=== PATIENT | male | born 1955 | race Caucasian/White ===

== ENCOUNTER 2016-09-07 16:08 | Emergency (ER) | payer OTHER ==
[2016-09-07 16:18] VITALS: TEMP 98; BMI 27.6
[2016-09-07] MEDS ORDERED: DIPHTHERIA AND TETANUS (ADULT) 0.5 ML SYR IM ONE (16:23)
[2016-09-07] MEDS ORDERED: LIDOCAINE 2% 5 ML (PRESERVATIVE FREE) VIAL INF ONE (16:23)
--- NOTE | 2016-09-07 16:53 | EDPRACDOC ---
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 NEEDS TETANUS. CUT ON WIRE. - Tetanus Status Last Tetanus: No - Pain Pain Severity: None Bleeding: Reports: Controlled Associated Signs & Symptoms: Reports: None ED Past Medical History - History Reviewed Yes Nurses notes reviewed and agree except as marked - Patient Medical History Cardiac History: Reports: Atrial Fibrillation Psychological History: Denies: Depression - Social Medical History Smoking Status: Heavy tobacco smoker (5 or more cigarettes/day or daily pipe/ cigar) EDM Review of Systems - Review of Systems ROS Negative Except as Marked: Yes All systems reviewed and were negative except as marked Constitutional: No Symptoms Reported Neurological: No Symptoms Reported Musculoskeletal: Hand Integumentary: Wound - Physical Exam Constitutional: Alert (Awake), No apparent distress Oriented to: Time, Person, Place Last recorded Vital Signs: Last Vital Signs Temp 98 F 09/07/16 16:16 Pulse 94 09/07/16 16:16 Resp 18 09/07/16 16:16 BP 138/74 09/07/16 16:16 Pulse Ox 97 09/07/16 16:16 Oxygen Pulse Oxygen Saturation 97 O2 Device Room Air Oxygen Flow Rate Fraction of Inspired Oxygen ( FIO2) - HEENT Head: Normal Eye Exam: Normal Neck: Normal, Denies Pain, Midline - Respiratory/Cardiovascular Respiratory: Normal - CTA Cardiovascular: Normal - GI Palpation: Normal Tenderness: Non tender - Musculoskeletal Back: Normal Extremities: Other (NOTED LINEAR "C" SHAPED LACERATION TO TOP OF RIGHT DORSAL INDEX FINGER; NO BLEEDING; FULL ROM OF FINGER) - Integumentary Skin: Normal Lymphatics: Normal - Neurologic Cerebellar: Normal Mood Description: Normal Thought: Coherent Perception: Normal ED Procedures - Suture/Laceration Suture #1 Right Dorsal Finger Wound Length (cm): 2.0 Wound's Depth, Shape: linear, flap Wound Explored: clean Betadine Prep?: Yes Anesthesia: 1% Lidocaine Volume Anesthetic (ccs): 3 Wound Margins: Revised Suture Size/Type: 4:0, nylon Number of Sutures: 5 Layer Closure?: No Decision Time to Discharge: 16:52 - Departure Disposition: Home Condition: Good Final Diagnosis: [id number] Instructions: Laceration (ED) Education/Counseling Given To: Patient Education/Counseling Given Regarding: Diagnosis, Treatment, Follow Up Referrals: Cuong Purcell MD [Primary Care Provider] - One Week Prescriptions: No Action Metoprolol Succinate (XL) [Toprol Xl] 25 mg PO DAILY Ciprofloxacin HCl [Cipro] 500 mg PO BID #20 tab Additional Instructions: PLEASE RETURN TO EMERGENCY ROOM IN 7-10 DAYS TO HAVE STITCHES REMOVED.
[2016-09-07 16:54] VITALS: BP 135/75; PULSE 88
== END 2016-09-07 16:53 | disposition home or self-care (01) ==
LOC: EDMC 16:08
DX: S61.210A Laceration without foreign body of right index finger without damage to nail, initial encounter (principal); W45.8XXA Other foreign body or object entering through skin, initial encounter; Z23 Encounter for immunization; I48.91 Unspecified atrial fibrillation; F17.200 Nicotine dependence, unspecified, uncomplicated
CPT/HCPCS: 12001; 90471; 90714; 99282; J2001